=== PATIENT | male | born 1965 | race Caucasian/White ===

== ENCOUNTER → 2017-05-18 09:21 | Outpatient (CLI) | payer MEDICAID | END | disposition home or self-care (01) | LOC: D.CN 03-16 10:00 | DX: M26.639 Articular disc disorder of temporomandibular joint, unspecified side (principal); G43.711 Chronic migraine without aura, intractable, with status migrainosus; G43.009 Migraine without aura, not intractable, without status migrainosus; G44.40 Drug-induced headache, not elsewhere classified, not intractable ==

== ENCOUNTER 2017-08-26 17:02 | Emergency (ER) | payer MEDICAID ==
[2017-08-26 17:38] LABS: BASOPHILS 0.2 % (0-2); HEMATOCRIT 49.8 % (42.0-54.0); HEMOGLOBIN 16.7 g/dL (13.5-17.5); IMMATURE GRANULOCYTES 0.7 % (0-5); MCH 30.1 pg (26.0-34.0); MCHC 33.5 g/dL (31.0-37.0); MCV 89.9 fL (80.0-100.0); MEAN PLATELET VOLUME 11.1 fL (7.4-10.4); NEUTROPHILS 78.1 % (40-80); PLATELET COUNT 358 10x3/uL (130-400); RBC 5.54 10x6/uL (4.20-6.10); RDW 14.5 % (11.5-14.5)
[2017-08-26 17:55] LABS: ALBUMIN 4.2 g/dL (3.4-5.0); ALKALINE PHOSPHATASE 138 U/L (46-116); ALT (SGPT) 30 U/L (10-68); BILIRUBIN - TOTAL 0.46 mg/dL (0.2-1.3); CALC OSMOLALITY 281 mosm/kg (275-300); CARBON DIOXIDE 23.1 mmol/L (21.0-32.0); CHLORIDE - SERUM 102 mmol/L (98-107); CREATININE - SERUM 1.7 mg/dL (0.6-1.3); GLUCOSE 117 mg/dL (74-106); POTASSIUM - SERUM 5.2 mmol/L (3.5-5.1); PROTEIN - SERUM 8.8 g/dL (6.4-8.2); SODIUM 139 mmol/L (136-145); UREA NITROGEN 22 mg/dL (7-18); eGFR NON AFRICAN AMERICAN 45 mL/min (90-120)
[2017-08-26 18:06] LABS: CREATINE KINASE 88 UL (21-232); PRO BNP 101 pg/mL (0-125)
[2017-08-26 18:11] LABS: TROPONIN-I < 0.017 ng/mL (0.000-0.060)
[2017-08-26 19:50] LABS: APPEARANCE HAZY (CLEAR); BILIRUBIN NEGATIVE (NEGATIVE); COLOR DK YELLOW (YELLOW); GLUCOSE NEGATIVE (NEGATIVE); KETONE NEGATIVE (NEGATIVE); NITRITE NEGATIVE (NEGATIVE); PROTEIN TRACE mg/dL (NEGATIVE); UROBILINOGEN NORMAL (NORMAL)
[2017-08-26 19:57] LABS: UDS - AMPHET NEGATIVE QUAL (NEGATIVE); UDS - BARB NEGATIVE QUAL (NEGATIVE); UDS - BENZO NEGATIVE QUAL (NEGATIVE); UDS - COCAINE NEGATIVE QUAL (NEGATIVE); UDS - OPIATE NEGATIVE QUAL (NEGATIVE); UDS - PCP NEGATIVE QUAL (NEGATIVE); UDS - THC NEGATIVE QUAL (NEGATIVE)
== END 2017-08-26 22:00 | disposition home or self-care (01) ==
LOC: D.ER 17:02
PROVIDERS: Emergency Medicine; Nurse Practitioner Family
DX: E86.0 Dehydration (principal); R53.1 Weakness; J44.9 Chronic obstructive pulmonary disease, unspecified

== ENCOUNTER 2020-01-28 06:06 | Inpatient (IN) | payer MEDICAID ==
[~2020-01-28] VITALS: Ht 172.7 cm; Wt 85.5 kg
--- NOTE | ~2020-01-28 | HEMODYNAMI ---
PATIENT:DAIN CAMARGO MEDICAL RECORD: [id number] : 61 LOCATION:[address] ADMISSION DATE: 01/28/20 Generatedon:01/29/202013:41 Patient name: DAIN CAMARGO Patient #: [id number] SSN: [id number] : 1965 Date of study: 01/29/2020 Page: Of Hemodynamic Procedure Report Patient Data Patient Demographics Procedure consent was obtained First Name: DAIN Gender: Male Last Name: MARY JO : 1965 Patient #: [id number] Age: 54 year(s) Race: SSN: [id number] Additional ID: [id number] Contact details Address: [address] [place] [address] State: [place] City: [place] Zip code: [address] Past Medical History Allergies Allergen Reaction Date Comments Reported Other 01/29/2020 PCN/SULFA/GUANFACINE/TIZANIDINE allergy Admission Admission Data Admission Date: 01/28/2020 Admission Time: 6:39 Arrival Date: 01/29/2020 Arrival Time: 0:00 Admit Source: Other Insurance Payor: Medicaid Room #: D.2123 [facility] #: [id number] Height (in.): 68 BSA: 1.99 (m2) Height (cm.): 172.72 BMI: 28.59 (kg/m2) Weight (lbs.): 188 Weight (kg.): 85.28 Lab Results Lab Result Date: 01/29/2020 Lab Result Time: 0:00 Biochemistry Name Units Result Min Max BUN mg/dl 16 --(---*)-- 7 18 Creatinine mg/dl 0.8 --(-*--)-- 0.6 1.3 eGFR ml/min 90 --(*---)-- 90 120 NONAFRICAN CBC Name Units Result Min Max Hematocrit % 45.1 --(-*--)-- 42 54 Hemoglobin g/dl 14.6 --(-*--)-- 13.5 17.5 Procedure Procedure Types Cath Procedure Diagnostic Procedure [facility] w/Coronaries Sedation Charges Moderate Sedation up to 15 minutes Procedure Description Procedure Date Procedure Date: 01/29/2020 Procedure Start Time: 13:25 Procedure End Time: 13:39 Procedure Staff Name Function Иван Lomeli MD Performing Physician Julissa Denton RT Monitor Vanessa Anderson RN Nurse Mayra Zabala RT Scrub Procedure Data Cath Procedure Fluoroscopy Diagnostic fluoroscopy Total fluoroscopy Time: 2.8 time: 2.8 min min Diagnostic fluoroscopy Total fluoroscopy dose: 448 dose: 448 mGy mGy Contrast Material Contrast Material Type Amount (ml) Isovue 300 56 Entry Location Entry Primary Successful Side Size Upsize Upsize Entry Closure Succes sful Closure Location (Fr) 1 (Fr) 2 (Fr) Remarks Device Remarks Femoral Right 5 Fr Exoseal artery Estimated blood loss: 5 ml Diagnostic catheters Device Type Used For End Catheter Placement MULTIPACK JL 4.0 5Fr Left Coronary catheter Angiography MULTIPACK 3DRC 5Fr Right Coronary catheter Angiography MULTIPACK Pigtail 5 Fr LV Angiography catheter Procedure Complications No complications Procedure Medications Medication Administration Route Dosage 0.9% NaCl I.V. 100 ml/hr Oxygen etCO2 Nasal cannula 2 l/min Lidocaine 2% added to field 20 Heparin Flush Bag added to field 2 bags (1000units/500ml NS) Versed I.V. 2 mg Fentanyl I.V. 50 mcg Versed I.V. 2 mg Fentanyl I.V. 50 mcg Hemodynamics Rest BSA: 1.99 (m2) HGB: 14.6 (g/dl) O2 Consumption: Estimated: 236.81 (ml/min) O2 Co nsumption indexed: Estimated:119 (ml/min/m) Heart Rate: 72 (bpm) Pressure Samples Time Site Value (mmHg) Purpose Heart Use Rate(bpm) 13:34 LV 108/-4,11 Snapshot 75 13:35 AO 98/57(77) Pullback 75 13:35 LV 102/0,8 Pullback 75 Gradients Valve Time Site 1 Site 2 Mean SEP/DFP Peak To Heart Use (mmHg) (sec/min) Peak Rate (mmHg) (bpm) Aortic 13:35 LV AO 11 5 4 75 102/0,8 98/57(77) Calculations Valve P-P Mean Valve Index Valve Source Name Gradient Area Flow (cm2) Aortic 4 11 4 11 Snapshots Pre Cath Intra NCS Post Cath Vital Signs Time Heart Resp SPO2 etCO2 NIBP Rhythm Pain Sedation Rate (ipm) (%) (mmHg) (mmHg) Status Level (bpm) 13:09:52 72 18 96 25.6 115/78(91) NSR 0 (11) 10(A) , No pain 13:14:04 76 14 97 20.3 114/74(94) NSR 0 (11) 10(A) , No pain 13:18:16 72 16 95 9.8 109/71(85) NSR 0 (11) 10(A) , No pain 13:22:24 79 19 97 8.3 113/77(93) NSR 0 (11) 10(A) , No pain 13:26:36 70 13 96 9 110/72(86) NSR 0 (11) 10(A) , No pain 13:30:46 75 14 96 9 105/69(84) NSR 0 (11) 10(A) , No pain 13:34:56 75 12 97 9 106/70(84) NSR 0 (11) 10(A) , No pain 13:39:03 77 10 93 9 105/73(87) NSR 0 (11) 10(A) , No pain Medications Time Medication Route Dose Verified Delivered Reason Notes Eff ectiveness by by 13:09:00 0.9% NaCl I.V. 100 Иван Vanessa used for ml/hr Armani Anderson computer information systems professor 13:09:06 Oxygen etCO2 2 Иван Vanessa used for Nasal l/min Armani Anderson procedure cannula RN 13:09:11 Lidocaine 2% added 20ml Иван Иван for local to vial Armani Lomeli MD anesthetic field 13:09:15 Heparin Flush added 2 Иван Иван used for Bag to bags Armani Lomeli MD procedure (1000units/500ml field NS) 13:23:36 Versed I.V. 2 mg Иван Vanessa for Armani Anderson sedation RN 13:23:43 Fentanyl I.V. 50 Иван Vanessa for mcg Armani Anderson sedation RN 13:30:39 Versed I.V. 2 mg Иван Vanessa for Armani Anderson sedation RN 13:30:47 Fentanyl I.V. 50 Иван Vanessa for mcg Armani Anderson sedation transportation aid Log Time Note 12:45:20 Informed consent obtained and on chart 12:46:35 Procedure Status Urgent Heart Cath (IP). 12:46:39 Mayra Vj RT(R) sent for patient. Start room use. 12:46:43 Time tracking: Regular hours (M-F 7:00 - 5:00) 12:46:50 Plan of Care:Hemodynamics will remain stable., Cardiac rhythm will remain stable., Comfort level will be maintained., Respiratory function will remain adequate., Patient/ family verbilizes understanding of procedure., Procedure tolerated without complication., Recovers from procedure without complications.. 12:47:31 ACC Patient presents with Stable Angina CCS Anginal Class 3--Marked limitation of physical activity, angina occurs with ordinary activity.. 12:50:40 Arrival Date: 01/29/2020 12:00:00 AM 12:51:12 Insurance Payor : Medicaid 12:51:23 Patient Height : 68 inches 12:51:28 Patient Weight : 188 lbs 12:51:44 Admit Source: Other 12:52:32 Lab Result : eGFR NONAFRICAN 90 ml/min 12:52:32 Lab Result : Hemoglobin 14.6 g/dl 12:52:32 Lab Result : BUN 16 mg/dl 12:52:32 Lab Result : Creatinine 0.8 mg/dl 12:52:32 Lab Result : Hematocrit 45.1 % 12:55:13 Risk of Mortality: 0.1 12:55:18 Risk of blood transfusion: 0.1 12:55:23 Risk of EMIGDIO: 0.2 12:56:18 Patient allergic to Other allergyPCN/SULFA/GUANFACINE/TIZANIDINE 13:03:04 Patient received from Med II to CCL 1 Alert and oriented. Tansferred to table in Supine position. 13:03:06 Warm blankets applied, and gerardo hugger turned on for patient comfort. 13:03:07 Correct patient and procedure confirmed by team. 13:03:08 ECG and BP/O2 sat monitors applied to patient. 13:08:50 Vital chart was started 13:09:00 0.9% NaCl 100 ml/hr I.V. was administered by Vanessa Anderson RN; used for procedure; Verbal order read back and verified. 13:09:06 Oxygen 2 l/min etCO2 Nasal cannula was administered by Vanessa Anderson RN ; used for procedure; Verbal order read back and verified. 13:09:11 Lidocaine 2% 20ml vial added to field was administered by Иван Lomeli MD ; for local anesthetic; Verbal order read back and verified. 13:09:15 Heparin Flush Bag (1000units/500ml NS) 2 bags added to field was administered by Иван Lomeli MD; used for procedure; Verbal order read back and verified. 13:09:33 Baseline sample Acquired. 13:10:40 Rhythm: sinus rhythm 13:10:46 Full Disclosure recording started 13:10:47 - 13:10:54 H&P Date Dictated: 01/29/2020 Within 30 days and on chart.. 13:10:56 Pre-procedure instructions explained to patient. 13:10:56 Pre-op teaching completed and patient verbalized understanding. 13:11:00 Family in patients room. 13:11:03 Patient NPO since Midnight. 13:11:11 Is the patient allergic to Iodine/contrast media? No. 13:11:15 Was the patient premedicated? Yes 13:11:54 Is patient on blood thinner?No 13:12:11 Patient diabetic? No. 13:12:15 ----Pre-sedation anethsthesia assessment.---- 13:12:19 Previous problem with sedation/anesthesia? No ? 13:12:23 Snore? Yes 13:12:26 Sleep apnea? No 13:12:30 Deviated septum? No 13:12:35 Opens mouth fully? Yes 13:12:45 Sticks out tongue? Yes 13:12:54 Airway obstruction? Yes ASTHMA/COPD 13:13:00 Dentures? No ? 13:13:05 Pre procedure: right dorsailis pedis pulse 1+ Palpable, but thready & weak; easily obliterated 13:13:20 Modified Sree's test Ulnar < 7 seconds 13:13:37 IV patent on arrival in right antecubital with 0.9% NaCl at KVO. 13:13:43 Lab results completed and on chart. 13:13:49 Stress Test: no; N/A ? 13:13:54 Right groin area was prepped with chlora-prep and draped in sterile fashion 13:13:57 Alarms reviewed by R. N. 13:13:57 Sharps counted by scrub and verified by R.N. 13:19:39 Zero performed for pressure channel P1 13:21:03 Use device set Femoral Dx 13:21:06 ACIST Syringe (25666) opened to sterile field. 13:21:06 Bag Decanter (2002S) opened to sterile field. 13:21:07 Medline Cath Pack ([id number]) opened to sterile field. 13:21:09 ACIST Hand Control (51543) opened to sterile field. 13:21:10 ACIST Manifold (88397) opened to sterile field. 13:21:11 DIAGNOSTIC Multipack 5Fr catheter set ([id number]) opened to sterile field. 13:21:12 Tegaderm 4 x 4 (1626W) opened to sterile field. 13:21:16 SHEATH 5FR [place] (EHG685) opened to sterile field. 13:21:17 EMERALD Guide Wire (680-325) opened to sterile field. 13:21:57 Physician arrived 13:21:58 --------ALL STOP TIME OUT------ 13:22:00 Final Timeout: patient, procedure, and site verified with staff and physician. All members of the team are in agreement. 13:22:08 Right groin site verified by team. 13:22:16 Fire Safety Assessment: A--An alcohol-based skin anteseptic being used preoperatively., C--Open oxygen or nitrous oxide is being used., D--An ESU, laser, or fiber-optic light is being used. 13:22:22 Physical assessment completed. ASA score P 2 - A patient with mild systemic disease as per Иван Lomeli MD. 13:22:28 1) 90+ Normal kidney functon but urine findings or structural abnormalities or genetic trait point to kidney disease. 13:22:34 Maximum allowable contrast dose (3.7 X eGFR X 0.75)250 ml. 13:22:41 Sedation plan: IV Moderate Sedation Medication:Versed, Fentanyl 13:23:36 Versed 2 mg I.V. was administered by Vanessa Anderson RN; for sedation; Verbal order read back and verified. 13:23:43 Fentanyl 50 mcg I.V. was administered by Vanessa Anderson RN; for sedation ; Verbal order read back and verified. 13:24:43 Procedure started. 13:25:17 Local anesthetic to right femoral artery with Lidocaine 2% by Иван adam MD.INITIAL ACCESS ONLY 13:26:34 A 5 Fr sheath was inserted into the Right Femoral artery 13:26:58 A MULTIPACK JL 4.0 5Fr catheter was advanced over the wire and used for Left Coronary Angiography. 13:28:34 LCA angiography performed. 13:28:40 Injector settings: Ml/sec: 3, Volume: 6, 13:29:52 Catheter removed. 13:30:18 A MULTIPACK 3DRC 5Fr catheter was advanced over the wire and used for Right Coronary Angiography. 13:30:39 Versed 2 mg I.V. was administered by Vanessa Anderson RN; for sedation; Verbal order read back and verified. 13:30:47 Fentanyl 50 mcg I.V. was administered by Vanessa Anderson RN; for sedation ; Verbal order read back and verified. 13:31:36 RCA angiography performed. 13:31:48 Injector settings: Ml/sec: 3, Volume: 6, 13:32:48 ACCDominant side:Right 13:32:51 Catheter removed. 13:32:59 A MULTIPACK Pigtail 5 Fr catheter was advanced over the wire and used for LV Angiography. 13:33:30 LV gram done using ELMORE 13:33:36 Injector settings: Ml/sec: 5, Volume: 15, 13:34:33 LV hemodynamics recorded. 13:34:52 EF : 55 % 13:35:13 Catheter removed. 13:35:24 EXOSEAL 5Fr (EX500) opened to sterile field. 13:35:39 Sheath removed intact; hemostasis achieved with Exoseal to the Right Femoral artery. 13:35:49 Procedure ended.(Physican Out) 13:36:35 Fluoroscopy time 02.80 minutes. 13:36:44 Fluoroscopy dose: 448 mGy 13:36:44 Flurop Dose total: 448 13:36:53 Dose Area Product 67050 mGy/cm. 13:37:06 Contrast amount:Isovue 300 56ml. 13:37:10 Maximum allowable dose exceeded? No. 13:37:11 Sharps counted by scrub and verified by R.N. 13:37:13 Insertion/operative site no bleeding no hematoma. 13:37:18 Post-op/insertion site Right Femoral artery dressed using a 4 x 4 and Tegaderm. 13:37:25 Post right femoral artery:stable 13:37:30 Post Procedure Pulses reassessed and unchanged 13:37:35 Post-procedure physical assessment completed. ASA score P 2 - A patient with mild systemic disease as per Иван Lomeli MD. 13:37:39 Post procedure rhythm: unchanged. 13:37:43 Estimated blood loss: 5 ml 13:37:45 Post procedure instruction explained to patient.Patient verbalizes understanding. 13:37:46 Patient needs reinforcement of post procedure teaching. 13:38:42 Procedure type changed to Cath procedure, Diagnostic procedure, LHC, C w/Coronaries, Sedation Charges, Moderate Sedation up to 15 minutes 13:38:44 Procedure and supply charges have been captured, reviewed, submitted an d are correct. 13:39:26 Procedure Complication : No complications 13:39:30 Vital chart was stopped 13:39:33 [facility] Findings: mild to moderate CAD (<70%) 13:39:37 Operative report dictated upon procedure completion. 13:39:38 See physician's report for complete and final results. 13:39:41 Report given to [facility]. 13:39:45 Patient transfered to [facility] with Bed. 13:39:48 Procedure ended. 13:39:48 Full Disclosure recording stopped 13:39:57 End room use (Document Last) Device Usage Item Name Manufacture Quantity Catalog Hospital Part Current Minimal L ot# / Number Charge Number Stock Stock Serial# Code ACIST Acist 1 56931 977263 441367 [id number] 20 Syringe Medical (57182) Systems Inc Bag Microtek 1 537512 20016 257069 5 Decanter Medical Inc. () Medline Medline 1 [id number] 826820 96042 369924 5 Cath Pack ([id number]) ACIST Hand Acist 1 26240 142518 274626 569644 5 Control Medical (74532) Systems Inc ACIST Acist 1 71334 337271 557156 582830 5 [place] (13393) Systems Inc DIAGNOSTIC Cardinal 1 [id number] 284562 34231 931489 30 Multipack Health 5Fr catheter set (SP6386) Tegaderm 4 3M 1 1626W 208866 505188 115818 5 x 4 (1626W) SHEATH 5FR Terumo 1 SDK616 293270 920849 774186 5 [place] (UZW301) EMERALD Cardinal 1 502-455 486837 523693 796669 5 Guide Wire Intrinsiq Materials (502-455) MULTIPACK Cardinal 1 136983 5 JL 4.0 5Fr Health catheter MULTIPACK Cardinal 1 958691 5 3DRC 5Fr Health catheter MULTIPACK Cardinal 1 524576 5 Pigtail 5 Health Fr catheter EXOSEAL 5Fr Cardinal 1 EX500 198694 314927 592274 10 (EX500) Health Signature Audit [place] Stage Time Signature Unsigned Intra-Procedure 01/29/2020 Julissa 1:40:33 PM Corrie RT(R) (CV) Intra-Procedure 01/29/2020 Vanessa Anderson 1:41:09 PM RN Intra-Procedure 01/29/2020 Иван Lomeli MD 1:41:42 PM [facility] [address] [id number]
[2020-01-28] MEDS ORDERED: METHOCARBAMOL500 MG PO (06:12)
[2020-01-28] MEDS ORDERED: SPIRIVA18 MCG INH (06:12)
[2020-01-28] MEDS ORDERED: ULTRAM50 MG PO (06:12)
[2020-01-28] MEDS ORDERED: NEURONTIN 300300 MG PO (06:12)
[2020-01-28] MEDS ORDERED: ALBUTEROL SULF8.5 GM INH (06:13)
[2020-01-28] MEDS ORDERED: RITALIN20 MG PO (06:14)
[2020-01-28 07:05] VITALS: BP 101/70
[2020-01-28 07:06] LABS: INR 0.94 (0.85-1.17); PROTIME 12.6 SECONDS (11.6-15.0)
[2020-01-28 07:08] LABS: D-DIMER-QUANTITATIVE < 0.27 ug/mLFEU (0.20-0.54)
[2020-01-28 07:12] LABS: CALC OSMOLALITY 282 mosm/kg (275-300); CALCIUM 8.7 mg/dL (8.5-10.1); CARBON DIOXIDE 23.5 mmol/L (21.0-32.0); CHLORIDE - SERUM 108 mmol/L (98-107); CREATININE - SERUM 0.8 mg/dL (0.6-1.3); GLUCOSE 105 mg/dL (74-106); POTASSIUM - SERUM 4.6 mmol/L (3.5-5.1); SODIUM 142 mmol/L (136-145); UREA NITROGEN 12 mg/dL (7-18); eGFR NON AFRICAN AMERICAN > 90 mL/min (90-120)
[2020-01-28 07:29] LABS: ALBUMIN 3.6 g/dL (3.4-5.0); ALKALINE PHOSPHATASE 111 U/L (30-120); ALT (SGPT) 24 U/L (10-68); BILIRUBIN - TOTAL 0.38 mg/dL (0.2-1.3); CKMB 0.7 U/L (0.0-3.6); CREATINE KINASE 66 UL (21-232); PROTEIN - SERUM 7.1 g/dL (6.4-8.2); T4 THYROXIN - FREE 1.14 ng/dL (0.76-1.46); THYROID STIMULATING HORMONE 7.53 uIU/mL (0.36-3.74); TROPONIN-I < 0.017 ng/mL (0.000-0.060)
[2020-01-28 07:43] LABS: BASOPHILS 1.4 % (0-2); EOSINOPHILS 9.4 % (0-7); HEMATOCRIT 46.3 % (42.0-54.0); HEMOGLOBIN 15.5 g/dL (13.5-17.5); IMMATURE GRANULOCYTES 0.8 % (0-5); LYMPHOCYTES 33.3 % (15-50); MCH 30.2 pg (26.0-34.0); MCHC 33.5 g/dL (31.0-37.0); MCV 90.1 fL (80.0-100.0); MONOCYTES 8.8 % (2-11); NEUTROPHILS 46.3 % (40-80); PLATELET COUNT 294 10x3/uL (130-400); RBC 5.14 10x6/uL (4.20-6.10); RDW 14.1 % (11.5-14.5); WBC 10.7 10x3/uL (4.8-10.8)
[2020-01-28 07:58] VITALS: BP 108/81; Ht 172.7 cm; Wt 85.5 kg
[2020-01-28 11:00] VITALS: BP 109/63
--- NOTE | 2020-01-28 12:47 | NUR ---
PT RESTING COMFORTABLY IN BED, DENIES ANY NEEDS AT THIS TIME. CALL LIGHT IN REACH, FAMILY AT BEDSIDE, NAD NOTED, WILL CONTINUE TO MONITOR.
--- NOTE | 2020-01-28 14:45 | NUR ---
ULTRAM GIVEN FOR PAIN LEVEL OF 8/10. PT DENIES ANY OTHER NEEDS AT THIS TIME. CALL LIGHT IN REACH, NAD NOTED, WILL CONTINUE TO MONITOR.
[2020-01-28 15:03] LABS: BILIRUBIN NEGATIVE (NEGATIVE); GLUCOSE NEGATIVE (NEGATIVE); KETONE NEGATIVE (NEGATIVE); NITRITE NEGATIVE (NEGATIVE); UROBILINOGEN NORMAL (NORMAL)
[2020-01-28 15:40] LABS: UDS - AMPHET NEGATIVE QUAL (NEGATIVE); UDS - BARB NEGATIVE QUAL (NEGATIVE); UDS - BENZO NEGATIVE QUAL (NEGATIVE); UDS - COCAINE NEGATIVE QUAL (NEGATIVE); UDS - OPIATE NEGATIVE QUAL (NEGATIVE); UDS - PCP NEGATIVE QUAL (NEGATIVE); UDS - THC NEGATIVE QUAL (NEGATIVE)
[2020-01-28 20:00] VITALS: BP 109/65
[2020-01-29] VITALS: BP 118/69
[2020-01-29 04:00] VITALS: BP 108/59
--- NOTE | 2020-01-29 05:41 | NUR ---
I have reviewed this patient and I concur with the Shift Assessment completed by the Licensed Practical Nurse today this shift.
[2020-01-29 06:22] LABS: BASOPHILS 0.9 % (0-2); EOSINOPHILS 9.6 % (0-7); HEMATOCRIT 45.1 % (42.0-54.0); HEMOGLOBIN 14.6 g/dL (13.5-17.5); IMMATURE GRANULOCYTES 1.1 % (0-5); LYMPHOCYTES 27.5 % (15-50); MCH 29.7 pg (26.0-34.0); MCHC 32.4 g/dL (31.0-37.0); MCV 91.7 fL (80.0-100.0); MEAN PLATELET VOLUME 10.4 fL (7.4-10.4); MONOCYTES 9.8 % (2-11); NEUTROPHILS 51.1 % (40-80); PLATELET COUNT 257 10x3/uL (130-400); RBC 4.92 10x6/uL (4.20-6.10)
[2020-01-29 06:36] LABS: CALC OSMOLALITY 276 mosm/kg (275-300); CALCIUM 9.2 mg/dL (8.5-10.1); CARBON DIOXIDE 27.4 mmol/L (21.0-32.0); CHLORIDE - SERUM 103 mmol/L (98-107); CREATININE - SERUM 0.8 mg/dL (0.6-1.3); GLUCOSE 101 mg/dL (74-106); SODIUM 138 mmol/L (136-145); eGFR NON AFRICAN AMERICAN > 90 mL/min (90-120)
[2020-01-29 06:51] LABS: UREA NITROGEN 16 mg/dL (7-18)
[2020-01-29 09:41] VITALS: BP 103/62
[2020-01-29 12:47] VITALS: BP 102/66
--- NOTE | 2020-01-29 13:01 | NUR ---
PT TO PING PONG TABLE ASSEMBLER
--- NOTE | 2020-01-29 13:52 | NUR ---
RECEIVED PT BACK TO ROOM 2122. PT A/O, SCREAMING " THEY DON'T KNOW WHAT THEY ARE DOING UP THERE. THEY WANT TO TELL ME THAT NOTHING IS WRONG WITH ME, WHEN I ALMOST PASSED OUT TWO TIMES AND MY HEART KEEPS ACTING UP." PT PULLED HEART MONITOR OFF AND SAID " I AM NOT WEARING THAT, SINCE THERE IS NOTHING WRONG." PT ALSO REFUSED TO HAVE FLUIDS INFUSING, FREQUENT VITAL SIGNS. DR. WHYTE IN TO TALK TO PT AND PT WAS NOT LETTING DR. WHYTE TALK AND WHEN DR. WHYTE TRIED TO EXPLAINED TO HIM THAT THERE WAS NO BLOCKAGE IN HIS HEART. THAT I MIGHT BE SOMETHING ELSE, PT DID NOT WANT TO LISTEN AND JUST KEEP SAYING THAT HE WAS GOING TO LEAVE. AFTER DR. WHYTE LEFT HE ALLOWED ME TO PUT HEART MONITOR BACK ON AND PLACED PT ON FREQUENT VITAL SIGNS. EXPLAINED TO PT THE IMPORTANCE OF LAYING FLAT AND PT STATED THAT HE WAS NOT GOING TO LAY FLAT, THAT HE COULD NOT EAT OR URINATE LAYING DOWN. EXPLAINED TO PT THAT IT WOULD ONLY BE FOR 2HRS. LAKSHMI PIERSON FROM [employer] ALSO EXPLAINED TO PT THAT HE CAN BLEED OUT IF HE DOES NOT LAY FLAT. PT VERBALIZED THAT HE UNDERSTANDS BUT STILL REFUSES TO LAY FLAT. PT WANTS TO LEAVE NOTIFIED ANH STARK AND SHE WILL BE PUTTING IN A D/C ORDER.
[2020-01-29] MEDS ORDERED: SYNTHROID25 MCG PO (15:10)
--- NOTE | 2020-01-29 15:34 | NUR ---
PROVIDED VERBAL AND WRITTEN DISCHARGE TEACHING. D/C RT FA IV WITH CATHETER TIP INTACT. PT LEFT UNIT VIA WHEELCHAIR, WITH ALL BELONGINGS, ACCOMPANIED BY FAMILY, NAD NOTED.
--- NOTE | 2020-01-29 17:49 | MORECARE ---
CASE MANAGEMENT DISCHARGE SUMMARY PATIENT: DAIN CAMARGO UNIT: [id number] ADM DATE: 01/28/20 AGE: 54 : [birth year] SEX: M ROOM/BED: D.2123 AUTHOR: ALEK,DOC PHYSICIAN: REFERRING PHYSICIAN: DENISE HAYES MD DATE OF SERVICE: 01/29/20 Discharge Plan Patient Name: DAIN CAMARGO Facility: [facility]:[place] : 1965 Planned Disposition: Home Anticipated Discharge Date: 01/29/20 Discharge Date: 01/29/2020 Expected LOS: 1 Initial Reviewer: [email or web address] Initial Review Date: 01/29/2020 Generated: 01/29/20 6:48 pm Comments DCP- Discharge Planning Updated by [email or web address]: Alan Wallace on 01/29/20 4:[address] Patient Name: DAIN CAMARGO Admission Status: Elective Accout number: [id number] Admission Date: 01-28-2020 : 1965 Admission Diagnosis: Attending: DENISE HAYES Current LOS: 1 Anticipated DC Date: 01-29-2020 Planned Disposition: Home Primary Insurance: [place]ICAID [place] Discharge Planning Comments: CM MET WITH PT IN ROOM TO DISCUSS DISCHARGE PLANNING AND NEEDS. PT REPORTS LIVING AT HOME INDEPENDENTLY WITH HIS . PT HASNEBULIZER WITH NO MEDICAL EQUIPMENT PROVIDER PREFERENCE. PT HAS NO OUTSIDE SERVICES ASSISTING IN THE HOME. CM DISCUSSED AVAILABILITY OF HOME HEALTH, REHAB SERVICES AND MEDICAL EQUIPMENT. PT DENIES DISCHARGE NEEDS, REPORTS HIS WILL PICK HIM UP FOR DISCHARGE HOME. Paper Stripper: Alan Wallace DCPIA - Discharge Planning Initial Assessment Updated by [email or web address]: Alan Wallace on 01/29/20 5:45 pm * Is the patient Alert and Oriented? Yes * How many steps to enter\exit or inside your home? NONE * PCP DR. TA IN [place] * Pharmacy [facility] IN [place] * Preadmission Environment Home with Family * ADLs Independent * Equipment Nebulizer * Other Equipment NO MEDICAL EQUIPMENT PROVIDER PREFERNCE * List name and contact numbers for known caregivers / representatives who currently or will assist patient after discharge: ABUNDIO CAMARGO, SPOUSE, * Verbal permission to speak to the caregivers and representatives has been obtained from the patient. N/A * Community resources currently utilized None * Please name any agencies selected above. NONE * Additional services required to return to the preadmission environment? No * Can the patient safely return to the preadmission environment? Yes * Has this patient been hospitalized within the prior 30 days at any hospital? No Patient Name: DAIN CAMARGO Page [phone] at 1749 All edits/amendments must be made on the electronic document DICTATION DATE: 01/29/201747 HOME COMFORT ADVISOR: KENDALL 01/29/201747 RPT#: [id number] DC DATE:01/29/20 STATUS: DIS IN [facility] [address] [place] [address] END OF REPORT
== END 2020-01-29 15:37 | disposition home or self-care (01) | DRG 282 ==
LOC: D.ER 06:06 → D.M2 06:39
PROVIDERS: Emergency Medicine; Family Medicine; Internal Medicine Cardiovascular Disease; ADMIT Internal Medicine Nephrology; ATTEND Internal Medicine Nephrology
PROC: B2151ZZ Fluoroscopy of Left Heart using Low Osmolar Contrast (ICD-10-PCS; 2020-01-29)
PROC: 4A023N7 Measurement of Cardiac Sampling and Pressure, Left Heart, Percutaneous Approach (ICD-10-PCS; 2020-01-29)
PROC: B2111ZZ Fluoroscopy of Multiple Coronary Arteries using Low Osmolar Contrast (ICD-10-PCS; principal; 2020-01-29 12:45)
DX: I48.91 Unspecified atrial fibrillation (principal); I21.A1 Myocardial infarction type 2; I25.10 Atherosclerotic heart disease of native coronary artery without angina pectoris; E78.5 Hyperlipidemia, unspecified; E03.9 Hypothyroidism, unspecified; J44.9 Chronic obstructive pulmonary disease, unspecified; K22.4 Dyskinesia of esophagus; K21.9 Gastro-esophageal reflux disease without esophagitis